=== PATIENT | female | born 2000 | race Two or more races ===

== ENCOUNTER 2018-12-29 10:07 | Emergency (ER) | payer OTHER ==
[~2018-12-29] VITALS: Ht 157.5 cm; Wt 65.8 kg
[2018-12-29 10:11] VITALS: BP 126/86
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
[2018-12-29] MEDS ORDERED: ONDANSETRON ODT4 MG BC (10:42)
[2018-12-29] MEDS ORDERED: IBUPROFEN600 MG ORAL (10:42)
[2018-12-29 10:52] VITALS: BP 126/86
--- NOTE | 2018-12-29 10:52 | NUR ---
ER DISCHARGE NOTE: Patient is cleared to be discharged per ERMD Dr. Bhatt , pt is aox4, on room air, with stable vital signs. pt was given dc and prescription instructions, pt was able to verbalize understanding, pt id band removed without complications. pt is able to ambulate with steady gait. pt took all belongings.
== END 2018-12-29 10:52 | disposition home or self-care (01) ==
LOC: EMR 10:35
DX: S06.0X0A Concussion without loss of consciousness, initial encounter (principal); V43.62XA Car passenger injured in collision with other type car in traffic accident, initial encounter; Y92.410 Unspecified street and highway as the place of occurrence of the external cause; R11.0 Nausea
CPT/HCPCS: 99282